=== PATIENT | female | born 1965 | race Caucasian/White ===

== ENCOUNTER 2017-04-04 07:40 | Day surgery (SDC) | payer SELFPAY, BC ==
[~2017-04-04 07:40] MED LIST: ceFAZolin 2 GM in Premix Bag 1 BAG IV ONE
[2017-04-04] MEDS ORDERED: Midazolam 1 MG/ML 2 ML SDV ONE ×3 (07:41→13:37)
[2017-04-04] MEDS ORDERED: Propofol 200 MG/20 ML SDV ONE ×2 (07:41→13:29)
[2017-04-04] MEDS ORDERED: Dexamethasone 4 MG/ML 5 ML MDV ONE ×2 (07:42→14:02)
[2017-04-04] MEDS ORDERED: diphenhydrAMINE 50 MG/ML SDV ONE (07:42)
[2017-04-04] MEDS ORDERED: Bupivacaine 0.25%/EPINEPHrine 1:200,000 10 ML SDV INJECT ONE (08:00)
[2017-04-04] MEDS ORDERED: Ondansetron 4 MG/2 ML SDV IVPUSH PRN (08:00)
[2017-04-04] MEDS ORDERED: Bacitracin Oint 28.35 GM Tube TOP ONE (08:00)
[2017-04-04] MEDS ORDERED: Lactated Ringers 1,000 ML IV SCH (08:00)
[2017-04-04] MEDS ORDERED: Ondansetron 4 MG Tab.DIS PO PRN (08:00)
[2017-04-04] MEDS ORDERED: diphenhydrAMINE 25 MG Cap PO PRN (08:00)
[2017-04-04] MEDS ORDERED: Promethazine 25 MG Tab PO PRN (08:00)
[2017-04-04] MEDS ORDERED: Ondansetron 4 MG/2 ML SDV ONE ×3 (08:33→14:58)
[2017-04-04] MEDS ORDERED: Scopolamine 1.5 MG Transdermal Patch TRDERM PRN (08:39)
--- NOTE | 2017-04-04 08:39 | PCM.PREANE ---
Preanesthetic Assessment - Anesthesia/Transfusion/Family Hx Anesthesia History: Prior Anesthesia Without Reaction Type of Anesthesia Reaction: Excessive Nausea/Vomiting Other Type of Anesthesia Reaction Comment: hx: Motion sickness, sick post, No known family hx: problems Family History of Anesthesia Reaction: No Transfusion History: Prior Transfusion Without Reaction - Review of Systems General: No Symptoms Pulmonary: No Symptoms Cardiovascular: No Symptoms Gastrointestinal: No symptoms Neurological: No Symptoms Other: Reports: None - Physical Assessment O2 Sat by Pulse Oximetry: 100 Respiratory Rate: 16 Vital Signs: Last Vital Signs Temp 36.3 C 04/04/17 08:03 Pulse 54 L 04/04/17 08:03 Resp 16 04/04/17 08:03 BP 127/60 04/04/17 08:03 Pulse Ox 100 04/04/17 08:03 Height: 1.7 m Weight: 91.626 kg ASA Class: 2 Mental Status: Alert & Oriented x3 Airway Class: Mallampati = 2 Dentition: Reports: Normal Dentition Thyro-Mental Finger Breadths: 2 Mouth Opening Finger Breadths: 2 ROM/Head Extension: Full Lungs: Clear to auscultation, Normal respiratory effort Cardiovascular: Regular Rate, Regular Rhythm - Allergies Allergies/Adverse Reactions: Allergies Allergy/AdvReac Type Severity Reaction Status Date / Time codeine Allergy Tachycardia Verified 09/06/15 14:02 - Blood Blood Available: No - Anesthesia Plan Pre-Op Medication Ordered: None - Acknowledgements Anesthesia Type Planned: MAC Pt an Appropriate Candidate for the Planned Anesthesia: Yes Alternatives and Risks of Anesthesia Discussed w Pt/Guardian: Yes Pt/Guardian Understands and Agrees with Anesthesia Plan: Yes PreAnesthesia Questionnaire HEENT History: Reports: None Cardiovascular History: Reports: Other (See Below) (h/o hypertension before loosing 60 lb. on protein diet) Gastrointestinal History: Reports: None Genitourinary History: Reports: None ROUND BONER History: Reports: Musculoskeletal History: Reports: Fracture, Other (See Below) (fatigue fatigue) Other Musculoskeletal History: hx Fracture to a foot Endocrine/Metabolic History: Reports: Obesity/BMI 30+ Other Endocrine/Metabolic History: hx diabetes (not on meds since weight loss) mwas on fen-phen more than 20 years ago, heart check up was ok afterward Hematologic History: Reports: Blood Transfusion(s) Other Hematologic History: hx transfusion after plast surgery - Past Surgical History Head Surgeries/Procedures: Reports: None HEENT Surgical History: Reports: HUMBERTO GI Surgical History: Reports: Appendectomy, Bariatric Procedure, Cholecystectomy , Hernia Repair/Other Other GI Surgeries/Procedures: Inguinal Hernia Repair, abdominoplasty Female Surgical History: Reports: Breast Implant, Hysterectomy Other Female Surgeries/Procedures: hysterectomy with vanessa S&O Neurological Surgical History: Reports: Lumbar Spine Other Neurological Surgeries/Procedures: back surgery x2 Musculoskeletal Surgical History: Reports: Other (See Below) Other Musculoskeletal Surgeries/Procedures:: Low back surgery with hardware ' plate and screws' Dermatological Surgical History: Reports: Plastic Surgical Reconstruction/Repair - SUBSTANCE USE Smoking Status *Q: Never Smoker Recreational Drug Use History: No - HOME MEDS Home Medications: Home Meds Cyanocobalamin (Vitamin B12) [Vitamin B12] 1 injection IM ASDIRECTED 09/06/15 [ History] Estrogens, Conjugated [Premarin] 1 tab PO DAILY 09/06/15 [History] Sodium Fluoride/Potassium Nit [Prevident 5000 Sensitive] 1 dose PO ASDIRECTED PRN 03/30/17 [History] Spironolactone 50 mg PO DAILY 03/30/17 [History] - CURRENT (IN HOUSE) MEDS Current Meds: Current Medications Hydrocodone Bitart/Acetaminophen (Alamo 325-5 Mg) 1 tab PO Q4H PRN PRN Reason: Pain Cephalexin (Keflex) 500 mg PO Q6HR [facility] Diphenhydramine HCl (Benadryl) 25 mg PO Q6H PRN PRN Reason: Itching Lactated Ringer's (Ringers, Lactated) 1,000 mls @ 125 mls/hr IV ASDIRECTED [facility] Last Admin: 04/04/17 08:00 Dose: 125 mls/hr Morphine Sulfate (Morphine) 1 mg IVPUSH Q2H PRN PRN Reason: Pain Ondansetron HCl (Zofran Odt) 4 mg PO Q6H PRN PRN Reason: Nausea/Vomiting Ondansetron HCl (Zofran) 4 mg IVPUSH Q6H PRN PRN Reason: Nausea/Vomiting Promethazine HCl (Phenergan) 25 mg PO Q6H PRN PRN Reason: Nausea/Vomiting Tramadol HCl (Ultram) 50 mg PO Q4H PRN PRN Reason: Pain Discontinued Medications Bacitracin (Bacitracin Oint) 2 gm TOP ONETIME ONE Stop: 06/07/17 08:01 Bupivacaine HCl/Epinephrine Bitart (Marcaine 0.25%/Epinephrine 1:200,000) 40 ml INJECT ONETIME ONE Stop: 04/04/17 08:01 Dexamethasone (Dexamethasone) Confirm Administered Dose 20 mg .ROUTE .STK-MED ONE Stop: 04/04/17 07:43 Diphenhydramine HCl (Benadryl) Confirm Administered Dose 50 mg .ROUTE .STK-MED ONE Stop: 04/04/17 07:43 Cefazolin Sodium/Dextrose 2 gm (/ Premix) 50 mls @ 100 mls/hr IV ONETIME ONE Stop: 04/03/17 15:27 Midazolam HCl (Versed 1 Mg/Ml) Confirm Administered Dose 6 mg .ROUTE .STK-MED ONE Stop: 04/04/17 07:42 Propofol (Diprivan 20 Ml) Confirm Administered Dose 600 mg .ROUTE .STK-MED ONE Stop: 04/04/17 07:42 Sufentanil Citrate (Sufentanil Citrate) Confirm Administered Dose 100 mcg .ROUTE .STK-MED ONE Stop: 04/04/17 07:23
[2017-04-04] MEDS ORDERED: Bupivacaine 0.25%/EPINEPHrine 1:200,000 10 ML SDV ONE ×3 (09:41→12:20)
[2017-04-04] MEDS ORDERED: EPINEPHrine 1:1000 1 MG/ML SDV ONE (09:41)
[2017-04-04] MEDS ORDERED: Lidocaine 1% 50 ML MDV ONE (09:42)
[2017-04-04] MEDS ORDERED: traMADol 50 MG Tab PO PRN (13:00)
[2017-04-04] MEDS ORDERED: Morphine 2 MG/ML Syringe IVPUSH PRN (13:00)
[2017-04-04] MEDS ORDERED: fentaNYL 100 MCG/2 ML SDV IVPUSH PRN (16:25)
--- NOTE | 2017-04-04 16:34 | PCM.OPNOTE ---
- General Post-Op/Procedure Note Date of Surgery/Procedure: 04/04/17 Operative Procedure(s): bilateral facelift with smas and platysmal plication Pre Op Diagnosis: desire for facelift Post-Op Diagnosis: Same Anesthesia Technique: Local, MAC Primary Surgeon: Lesa Quintana Coding Compliance Auditor: Jacy Diaz Complications: None Condition: Good Free Text/Narrative:: Intake & Output 04/04/17 04/04/17 04/04/17 07:59 15:59 23:59 Output Total 405 Balance -405
--- NOTE | 2017-04-04 16:47 | PCM.POSTAN ---
POST ANESTHESIA ASSESSMENT - MENTAL STATUS Mental Status: alert, oriented - VITAL SIGNS Pulse Rate: 76 SaO2: 94 Resp Rate: 12 - RESPIRATORY Respiratory Status: respiratory rate WNL, airway patent, O2 saturation stable - CARDIOVASCULAR CV Status: pulse rate WNL, blood pressure stable - GASTROINTESTINAL GI Status: no symptoms - POST OP HYDRATION Hydration Status: adequate & stable
[2017-04-04] MEDS: Acetaminophen/HYDROcodone 325-5 MG Tab PO PRN (18:05)
[2017-04-04] MEDS: Cephalexin 500 MG Cap PO SCH ×3 (18:07→23:36)
--- NOTE | 2017-04-05 03:40 | PCM48HPAN ---
Post Anesthesia Note - EVALUATION WITHIN 48HRS OF ANESTHETIC Vital Signs in Normal Range: Yes Patient Participated in Evaluation: Yes Respiratory Function Stable: Yes Airway Patent: Yes Cardiovascular Function Stable: Yes Hydration Status Stable: Yes Pain Control Satisfactory: Yes Nausea and Vomiting Control Satisfactory: Yes Mental Status Recovered: Yes
[2017-04-05] MEDS: Acetaminophen/HYDROcodone 325-5 MG Tab PO PRN ×2 (03:53→08:30)
[2017-04-05] MEDS: Cephalexin 500 MG Cap PO SCH ×2 (06:59→11:40)
--- NOTE | 2017-04-05 09:06 | PCM.SN ---
- Free Text/Narrative Note: Rechecked last night at 630pm and this am at 815am. Doing well. No signs of hematoma or bleeding. Feeling well with minimal pain. Will do dressings at 12 when more comfortable and hopefully home after that depending on patients comfort and function today. Some pain right now.
[2017-04-05 10:58] VITALS: BP 115/76
[2017-04-05] MEDS ORDERED: Acetaminophen/HYDROcodone 325-5 MG Tab PO ONE (12:00)
--- NOTE | 2017-04-05 13:12 | PCM.PN ---
- General Info Date of Service: 04/05/17 Admission Dx/Problem (Free Text): s/p facelift pod 1 Subjective Update: doing well and pain controlled with oral medications. Wants to shower. Very happy with process thus far. Functional Status: Reports: pain controlled, tolerating diet, ambulating, urinating - Review of Systems General: Denies: Fever, Weakness HEENT: Reports: no symptoms Pulmonary: Reports: no symptoms Musculoskeletal: Reports: neck pain Skin: Reports: bruising (on right side only - minimal) Neurological: Reports: No Symptoms. Denies: Numbness, Paresthesia, Trouble Speaking, Weakness, Change in Speech Psychiatric: Reports: no symptoms - Patient Data Vitals - most recent: Last Vital Signs Temp 96.5 F 04/05/17 10:55 Pulse 51 L 04/05/17 10:55 Resp 16 04/05/17 10:55 BP 115/76 04/05/17 10:55 Pulse Ox 100 04/05/17 10:55 Weight - most recent: 201 lb 15.095 oz I&O - last 24 hours: Intake & Output 04/04/17 04/05/17 04/05/17 23:59 07:59 15:59 Intake Total 3100 600 Output Total 1 1623 Balance 3099 -1023 Med Orders - Current: Current Medications Hydrocodone Bitart/Acetaminophen (Brea 325-5 Mg) 1 tab PO Q4H PRN PRN Reason: Pain Last Admin: 04/05/17 08:30 Dose: 1 tab Cephalexin (Keflex) 500 mg PO Q6HR [facility] Last Admin: 04/05/17 11:40 Dose: 500 mg Diphenhydramine HCl (Benadryl) 25 mg PO Q6H PRN PRN Reason: Itching Fentanyl (Sublimaze) 50 mcg IVPUSH Q5M PRN PRN Reason: Pain (severe 7-10) Stop: 04/05/17 16:25 Lactated Ringer's (Ringers, Lactated) 1,000 mls @ 125 mls/hr IV ASDIRECTED [facility] Last Admin: 04/04/17 08:00 Dose: 125 mls/hr Morphine Sulfate (Morphine) 1 mg IVPUSH Q2H PRN PRN Reason: Pain Last Admin: 04/04/17 22:02 Dose: 1 mg Ondansetron HCl (Zofran Odt) 4 mg PO Q6H PRN PRN Reason: Nausea/Vomiting Ondansetron HCl (Zofran) 4 mg IVPUSH Q6H PRN PRN Reason: Nausea/Vomiting Promethazine HCl (Phenergan) 25 mg PO Q6H PRN PRN Reason: Nausea/Vomiting Scopolamine (Transderm-Scop) 1.5 mg TRDERM Q72H PRN PRN Reason: Nausea Last Admin: 04/04/17 08:57 Dose: 1.5 mg Tramadol HCl (Ultram) 50 mg PO Q4H PRN PRN Reason: Pain Discontinued Medications Hydrocodone Bitart/Acetaminophen (Brea 325-5 Mg) 1 tab PO ONETIME ONE Stop: 04/05/17 12:01 Last Admin: 04/05/17 12:01 Dose: 1 tab Bacitracin (Bacitracin Oint) 2 gm TOP ONETIME ONE Stop: 04/04/17 08:01 Last Admin: 04/04/17 17:55 Dose: Not Given Bupivacaine HCl/Epinephrine Bitart (Marcaine 0.25%/Epinephrine 1:200,000) 40 ml INJECT ONETIME ONE Stop: 04/04/17 08:01 Last Admin: 04/04/17 17:55 Dose: Not Given Bupivacaine HCl/Epinephrine Bitart (Marcaine 0.25%/Epinephrine 1:200,000) Confirm Administered Dose 40 ml .ROUTE .STK-MED ONE Stop: 04/04/17 09:42 Bupivacaine HCl/Epinephrine Bitart (Marcaine 0.25%/Epinephrine 1:200,000) Confirm Administered Dose 20 ml .ROUTE .STK-MED ONE Stop: 04/04/17 11:45 Bupivacaine HCl/Epinephrine Bitart (Marcaine 0.25%/Epinephrine 1:200,000) Confirm Administered Dose 30 ml .ROUTE .STK-MED ONE Stop: 04/04/17 12:21 Dexamethasone (Dexamethasone) Confirm Administered Dose 20 mg .ROUTE .STK-MED ONE Stop: 04/04/17 07:43 Dexamethasone (Dexamethasone) Confirm Administered Dose 20 mg .ROUTE .STK-MED ONE Stop: 04/04/17 14:03 Diphenhydramine HCl (Benadryl) Confirm Administered Dose 50 mg .ROUTE .STK-MED ONE Stop: 04/04/17 07:43 Epinephrine HCl (Adrenalin 1:1000) Confirm Administered Dose 1 mg .ROUTE .STK- MED ONE Stop: 04/04/17 09:42 Cefazolin Sodium/Dextrose 2 gm (/ Premix) 50 mls @ 100 mls/hr IV ONETIME ONE Stop: 04/03/17 15:27 Last Admin: 04/04/17 17:55 Dose: Not Given Lidocaine HCl (Xylocaine 1%) Confirm Administered Dose 50 ml .ROUTE .STK-MED ONE Stop: 04/04/17 09:43 Midazolam HCl (Versed 1 Mg/Ml) Confirm Administered Dose 6 mg .ROUTE .STK-MED ONE Stop: 04/04/17 07:42 Midazolam HCl (Versed 1 Mg/Ml) Confirm Administered Dose 2 mg .ROUTE .STK-MED ONE Stop: 04/04/17 11:44 Midazolam HCl (Versed 1 Mg/Ml) Confirm Administered Dose 2 mg .ROUTE .STK-MED ONE Stop: 04/04/17 13:38 Ondansetron HCl (Zofran) Confirm Administered Dose 4 mg .ROUTE .STK-MED ONE Stop: 04/04/17 08:34 Ondansetron HCl (Zofran) Confirm Administered Dose 4 mg .ROUTE .STK-MED ONE Stop: 04/04/17 10:18 Ondansetron HCl (Zofran) Confirm Administered Dose 4 mg .ROUTE .STK-MED ONE Stop: 04/04/17 14:59 Propofol (Diprivan 20 Ml) Confirm Administered Dose 600 mg .ROUTE .STK-MED ONE Stop: 04/04/17 07:42 Propofol (Diprivan 20 Ml) Confirm Administered Dose 600 mg .ROUTE .STK-MED ONE Stop: 04/04/17 13:30 Sufentanil Citrate (Sufentanil Citrate) Confirm Administered Dose 100 mcg .ROUTE .STK-MED ONE Stop: 04/04/17 07:23 - Exam Quality Assessment: No: DVT prophylaxis (ambulatory and MAC anesthesia - not general. ) General: alert, oriented, cooperative HEENT: Pupils equal, EOMI Neck: supple (minimal swelling here with excellent contour and redraping. Bruising on the right side only. All other areas looking quite well. ) Lungs: Normal respiratory effort Extremities: no edema, no tenderness/swelling Skin: warm, dry Wound/Incisions: dressing dry and intact, drainage (minimal serous with red tinge. ), other (brusiing of the right neck area at inferior aspect. No other signs of swelling or compromise. Incisions with excellent healing and skin flap viablity. ). No: erythema Psy/Mental Status: alert, normal affect, normal mood - Problem List & Annotations (1) Encounter for cosmetic surgery SNOMED Code(s): 782592420, 826811817 Code(s): Z41.1 - ENCOUNTER FOR COSMETIC SURGERY Status: Acute Priority: Medium Current Visit: Yes - Problem List Review Problem List Initiated/Reviewed/Updated: Yes - My Orders Last 24 Hours: My Active Orders 04/04/17 13:00 Patient Status [ADT] Routine Morphine 1 mg IVPUSH Q2H PRN traMADol [Ultram] 50 mg PO Q4H PRN 04/04/17 14:00 Ambulate [RC] ASDIRECTED Occlusive Dressing [Wound Care] [RC] DAILY 04/04/17 15:04 Drain Management [RC] ASDIRECTED Head of Bed Elevation [RC] ASDIRECTED 04/04/17 16:00 Cephalexin [Keflex] 500 mg PO Q6HR 04/04/17 16:34 Communication Order [RC] ROUTINE 04/04/17 Dinner General [Regular Diet] [DIET] - Plan Plan:: Doing quite well. Drains removed today and can shower per usual. Recheck Sunday, sooner with any issues or concerns. Private contact information provided. Lotus for pain. OK to use OTC medications if needed as well. Ambulate at least tid and no driving with narcotics.
--- NOTE | 2017-04-05 16:45 | OR ---
SURGEON: ELAINA ROBB MD DATE OF PROCEDURE: 04/04/2017 PREOPERATIVE DIAGNOSIS: Desire for face lift. POSTOPERATIVE DIAGNOSIS: Desire for face lift. PROCEDURE: Bilateral subcutaneous face lift with SMAS and platysmal plication. MANAGER CLUB: Jacy Diaz. ANESTHESIA: Local MAC. INDICATIONS: Ms. Pate is a 51-year-old female seen today in evaluation for bilateral face lift. Risks and benefits of the procedure were thoroughly discussed with her and informed consent was obtained. Risks were including, but not limited to, bleeding, infection, damage to underlying or overlying structures, possible need for future interventions and possible scarring. We specifically discussed nerve damage in these areas and the high risk of this on the sites of the procedure. In addition, we discussed the possible need for revision or reoperation should any complications occur. She understands all of these and a copy of our informed consent was provided for her. She was in agreement and today proceeded with surgery. PROCEDURE IN DETAIL: After informed consent was obtained and placed on the chart, the patient was brought to the operating theater and laid in the supine position. After adequate local MAC anesthesia was obtained, with an initial pause due to lack of respirations and needing of a facemask to support her breathing, the area was prepped and draped in a normal fashion and a time-out was completed to confirm side and site. A Betadine prep was used with butterfly needles and Steri-Strips into the intranasal area. In addition, once adequately Steri-Stripped in place, attention was then paid to placement of the CO2 return and this was Steri-Stripped at the top of this to ensure appropriate monitoring. Attention was then paid to marking of the bilateral face lift incisions in the preauricular area extending around the ear into the postauricular area and into the hairline. There was a standard facelift incision extending to just above the lateral eye area. Once this was marked, 0.25% Marcaine with epinephrine was infiltrated into the area to ensure hemostasis and anesthesia. Once this was completed, tumescent solution of 50 mL of lidocaine mixed with 1000 mL of saline and one ampule of epinephrine was mixed and injected into the area using the liposuction tumescent infiltration cannula. Once adequate hemostasis was appreciated by color change of the skin, attention was then paid to dissection of the bilateral skin flaps. The preauricular incision was made and dissection was carried down into the subcutaneous plane taking care to maintain SMAS layer underneath in good condition. This was elevated to the medial pupillary line bilaterally and just pass the jowling on the lower aspect position of the chin. Care was taken to maintain and protect the marginal mandibular nerve bilaterally. Attention was then carried underneath the ear and the neck area in order to free up the subcutaneous plane on the anterior neck. Platysma was maintained intact just underneath this. Once the subcutaneous plane had been developed, attention was then paid to the deeper work. Attention was then paid 1st to the platysma and the inferior border of the lateral platysma was transected using Bovie electrocautery. Once this was completed, attention was then paid to lateral platysma window, 1 cm inferior and 1 cm anterior to the inferior tragus. The platysma was then grabbed and plicated to the mastoid process. Several [id number] 3-0 PDS sutures were used to accomplish this to redrape the neck skin. Once this was accomplished, attention was paid to the preauricular area and inverted L shaped smash plication was developed. Once this was completed, an appropriate tension was appreciated. [id number] 3-0 PDS sutures were used to secure this to the zygomatic arch area. Once this was completed, and meticulous hemostasis was obtained, attention was then paid to copious irrigation and then liposuction of the submental area deep to the platysma. Once this was completed, approximately 15 mL of liposuction material and tumescent had been removed. Attention was then paid to redraping of the skin flap and plication sutures in the inferior jaw line area using 4-0 Monocryl to accomplish this and advance the flap. Once the skin flap was advanced and plicated in the submental area extending laterally to the inferior auricular along the jaw line, attention was then paid to redraping of the skin flap itself. This was done with minimal tension and appropriate contour and a superolateral pole position was completed. Once redraped in a natural fashion, this was stapled in place and trimmed appropriately. Once adequately trimmed, the wounds were then closed. After placement of two 23-gauge butterfly drains stuck into red rubber tube. The skin was closed using 4-0 Monocryl stitches, running 6-0 in the preauricular area, and running 5-0 in the postauricular area. The wounds were then dressed with Steri-Strips, fluffs, and a jaw bra. The patient tolerated this well and all counts of needles were correct at the end of the case. FOLLOWUP INSTRUCTIONS: The patient will be maintained in the hospital for continued evaluation. They will call with any issues or concerns and were given a prescription for pain control. HEESTELLA / KARY /[id number] MTDD
== END 2017-04-09 15:30 | disposition home or self-care (01) ==
LOC: MW.SDS 07:40 → MW.MS 13:00 → UNDOADMOB 13:00 → UNDODISOB 04-05 14:00 → MW.SDS 04-09 15:30
PROVIDERS: ATTEND Plastic Surgery
DX: Z41.1 Encounter for cosmetic surgery (principal); I10 Essential (primary) hypertension; E53.8 Deficiency of other specified B group vitamins; Z92.29 Personal history of other drug therapy; E66.9 Obesity, unspecified; Z79.890 Hormone replacement therapy; Z88.6 Allergy status to analgesic agent; Z79.899 Other long term (current) drug therapy; Z98.84 Bariatric surgery status; Z90.49 Acquired absence of other specified parts of digestive tract; Z90.710 Acquired absence of both cervix and uterus; Z98.890 Other specified postprocedural states
CPT/HCPCS: 15825; 15829; A9270; J0171; J0690; J1100; J1200; J2250; J2270; J2405; J7120; 00300; J2704

== ENCOUNTER 2018-01-09 10:15 | Day surgery (SDC) | payer OTHER, SELFPAY ==
[~2018-01-09 10:15] MED LIST changes: +Bupivacaine 0.25%/EPINEPHrine 1:200,000 10 ML SDV INJECT ONE; +Bupivacaine 25%/EPINEPHrine/PF 30 ML ONE; +EPINEPHrine 1 MG/ML SDV ONE; +Gentamicin 40 MG/ML 2 ML Vial ONE; +ceFAZolin 1 GM Vial ONE; +traMADol 50 MG Tab PO PRN
--- NOTE | 2018-01-09 10:40 | PCM.PREANE ---
Preanesthetic Assessment - Anesthesia/Transfusion/Family Hx Anesthesia History: Prior Anesthesia Reaction Type of Anesthesia Reaction: Excessive Nausea/Vomiting Other Type of Anesthesia Reaction Comment: hx: Motion sickness, sick post, No known family hx: problems Family History of Anesthesia Reaction: No Transfusion History: Prior Transfusion Without Reaction - Review of Systems General: No Symptoms Pulmonary: No Symptoms Cardiovascular: No Symptoms Gastrointestinal: No Symptoms Neurological: No Symptoms Other: Reports: None - Physical Assessment NPO Status Date: 01/08/18 Height: 1.7 m Weight: 97.069 kg ASA Class: 2 Mental Status: Alert & Oriented x3 Airway Class: Mallampati = 1 Dentition: Reports: Normal Dentition ROM/Head Extension: Full Lungs: Clear to Auscultation, Normal Respiratory Effort Cardiovascular: Regular Rate, Regular Rhythm - Allergies Allergies/Adverse Reactions: Allergies Allergy/AdvReac Type Severity Reaction Status Date / Time codeine Allergy Tachycardia Verified 01/04/18 10:20 metformin Allergy Diarrhea Verified 01/04/18 10:21 - Anesthesia Plan Pre-Op Medication Ordered: None - Acknowledgements Anesthesia Type Planned: General Anesthesia Pt an Appropriate Candidate for the Planned Anesthesia: Yes Alternatives and Risks of Anesthesia Discussed w Pt/Guardian: Yes Pt/Guardian Understands and Agrees with Anesthesia Plan: Yes Additional Comments: has frequent PACs and PVCs, benign PreAnesthesia Questionnaire HEENT History: Reports: None Cardiovascular History: Reports: Arrhythmia, Hypertension Other Cardiovascular History: possible PVC's Gastrointestinal History: Reports: None Genitourinary History: Reports: None CREATIVE SERVICES DESIGNER History: Reports: Musculoskeletal History: Reports: Fracture Other Musculoskeletal History: hx of fx foot Neurological History: Reports: Other (See Below) Other Neuro History: hx of motion sickness Endocrine/Metabolic History: Reports: Obesity/BMI 30+ Other Endocrine/Metabolic History: hx diabetes (not on meds since weight loss) mwas on fen-phen more than 20 years ago, heart check up was ok afterward Hematologic History: Reports: B12 Deficiency, Other (See Below) Other Hematologic History: potassium deficiency Dermatologic History: Reports: Other (See Below) Other Dermatologic History: hyperpigmentation - Past Surgical History Head Surgeries/Procedures: Reports: None HEENT Surgical History: Reports: LASIK GI Surgical History: Reports: Appendectomy, Bariatric Procedure, Cholecystectomy , Hernia, Inguinal Female Surgical History: Reports: Breast Implant, Hysterectomy, Oophorectomy Neurological Surgical History: Reports: Lumbar Spine, Spinal Fusion - SUBSTANCE USE Smoking Status *Q: Never Smoker Recreational Drug Use History: No - HOME MEDS Home Medications: Home Meds Cyanocobalamin (Vitamin B12) [Vitamin B12] 1 injection IM ASDIRECTED 09/06/15 [ History] Sodium Fluoride/Potassium Nit [Prevident 5000 Sensitive] 1 dose PO ASDIRECTED PRN 03/30/17 [History] Spironolactone 50 mg PO DAILY 03/30/17 [History] Estrogens, Conjugated [Premarin] 0.625 mg PO DAILY 01/04/18 [History] Hydroquinone Microspheres [Hydroquinone] 1 applic TOP ASDIRECTED 01/04/18 [ History] - CURRENT (IN HOUSE) MEDS Current Meds: Current Medications Lactated Ringer's (Ringers, Lactated) 1,000 mls @ 125 mls/hr IV ASDIRECTED [facility] Tramadol HCl (Ultram) 50 mg PO Q4H PRN PRN Reason: Pain Discontinued Medications Bacitracin (Bacitracin) Confirm Administered Dose 50,000 units .ROUTE .STK-MED ONE Stop: 01/09/18 07:35 Bupivacaine HCl/Epinephrine Bitart (Marcaine 0.25%/Epinephrine 1:200,000) 10 ml INJECT ONETIME ONE Stop: 01/09/18 08:01 Cefazolin Sodium (Ancef) Confirm Administered Dose 1 gm .ROUTE .STK-MED ONE Stop: 01/09/18 07:35 Epinephrine HCl (Adrenalin) Confirm Administered Dose 1 mg .ROUTE .STK-MED ONE Stop: 01/09/18 07:41 Gentamicin Sulfate (Gentamicin) Confirm Administered Dose 80 mg .ROUTE .STK-MED ONE Stop: 01/09/18 07:34 Cefazolin Sodium/Dextrose 2 gm (/ Premix) 50 mls @ 100 mls/hr IV ONETIME ONE Stop: 01/09/18 08:29 Bupivacaine HCl/Epinephrine Bitart (Sensorc Mpf 0.25%-Epi [id number]) Confirm Administered Dose 60 mls @ as directed .ROUTE .STK-MED ONE Stop: 01/09/18 07:34
[2018-01-09] MEDS: Lactated Ringers 1,000 ML IV SCH ×2 (10:59→19:06)
[2018-01-09] MEDS ORDERED: Propofol 200 MG/20 ML SDV ONE ×3 (11:37→15:05)
[2018-01-09] MEDS ORDERED: Lidocaine 2% 5 ML SDV ONE (11:37)
[2018-01-09] MEDS ORDERED: Midazolam 1 MG/ML 2 ML SDV ONE (11:37)
[2018-01-09] MEDS ORDERED: fentaNYL 250 MCG/5 ML SDV ONE (11:38)
[2018-01-09] MEDS ORDERED: Ondansetron 4 MG/2 ML SDV ONE (11:38)
[2018-01-09] MEDS ORDERED: Scopolamine 1.5 MG Transdermal Patch ONE (13:30)
[2018-01-09] MEDS ORDERED: Succinylcholine 200 MG/10 ML MDV ONE (14:02)
[2018-01-09] MEDS ORDERED: fentaNYL 100 MCG/2 ML SDV ONE ×2 (15:03→16:25)
[2018-01-09] MEDS ORDERED: Glycopyrrolate 0.2 MG/ML SDV ONE (15:34)
[2018-01-09] MEDS ORDERED: Ondansetron 4 MG/2 ML SDV IVPUSH PRN (17:07)
[2018-01-09] MEDS ORDERED: Ondansetron 4 MG Tab.DIS PO PRN (17:07)
[2018-01-09] MEDS ORDERED: Promethazine 25 MG Tab PO PRN (17:11)
[2018-01-09] MEDS ORDERED: HYDROmorphone 1 MG/ML Syringe IVPUSH PRN (17:11)
--- NOTE | 2018-01-09 17:13 | PCM.OPNOTE ---
- General Post-Op/Procedure Note Date of Surgery/Procedure: 01/09/18 Operative Procedure(s): bilateral breast lift and implant exchange Pre Op Diagnosis: cosmetic Post-Op Diagnosis: Same Anesthesia Technique: General ET Tube, Local Primary Surgeon: Lesa Quintana Fabric Separator Operator: Jacy Diaz Complications: None Condition: Good
[2018-01-09] MEDS: fentaNYL 100 MCG/2 ML SDV IVPUSH PRN ×2 (17:20→17:32)
--- NOTE | 2018-01-09 17:38 | PCM.POSTAN ---
POST ANESTHESIA ASSESSMENT - MENTAL STATUS Mental Status: Alert, Oriented - VITAL SIGNS Pulse Rate: 78 SaO2: 98 Resp Rate: 10 Blood Pressure: 127/74 - RESPIRATORY Respiratory Status: Respiratory Rate WNL, Airway Patent, O2 Saturation Stable - CARDIOVASCULAR CV Status: Pulse Rate WNL, Blood Pressure Stable - GASTROINTESTINAL GI Status: No Symptoms - POST OP HYDRATION Hydration Status: Adequate & Stable - OBSERVATIONS Free Text/Narrative:: Pt opens eyes to voice, VSS.
[2018-01-09] MEDS ORDERED: Ketorolac 30 MG/ML SDV IVPUSH ONE (17:49)
[2018-01-09] MEDS ORDERED: Acetaminophen 1,000 MG in Premix Bag 1 BAG IV ONE (17:50)
[2018-01-09] MEDS: Acetaminophen/HYDROcodone 325-5 MG Tab PO PRN (20:23)
[2018-01-10] MEDS: Acetaminophen/HYDROcodone 325-5 MG Tab PO PRN ×2 (03:12→07:31)
[2018-01-10] MEDS: Lactated Ringers 1,000 ML IV SCH (03:12)
[2018-01-10 10:45] VITALS: BP 127/74
--- NOTE | 2018-01-10 10:45 | PCM48HPAN ---
Post Anesthesia Note - EVALUATION WITHIN 48HRS OF ANESTHETIC Vital Signs in Normal Range: Yes Patient Participated in Evaluation: Yes Respiratory Function Stable: Yes Airway Patent: Yes Cardiovascular Function Stable: Yes Hydration Status Stable: Yes Pain Control Satisfactory: Yes Nausea and Vomiting Control Satisfactory: Yes Mental Status Recovered: Yes Pulse Rate: 78 Resp Rate: 18 Blood Pressure: 127/74
--- NOTE | 2018-01-11 10:49 | OR ---
SURGEON: ELAINA ROBB MD DATE OF PROCEDURE: 01/09/2018 PREOPERATIVE DIAGNOSIS: Desire for improved breast contour and size. POSTOPERATIVE DIAGNOSIS: Desire for improved breast contour and size. PROCEDURE: Bilateral breast implant exchange and bilateral breast mastopexy. ANALYST: ZURI Shirley. REASON ANALYST WAS NECESSARY: Prepping, draping, and closure assistance. INDICATIONS: Ms. Pate is a 52-year-old female, seen today in evaluation for bilateral breast surgery. She has had previous implants and would like them smaller. In addition, she would like a breast lift. Risks and benefits of this were discussed with her, and she was in agreement to proceed. Risks were including, but not limited to, bleeding, infection, damage to underlying or overlying structures, possible need for future interventions, and possible scarring. PROCEDURE IN DETAIL: After informed consent was obtained and placed on the chart, the patient was brought to the operating theater and laid in supine position. After adequate general anesthesia was obtained, the area was prepped and draped, and a time-out was completed to confirm side and site. Attention was then paid to the previous lower inframammary fold incisions, and the dissection was carried here until exposure of the implant. The previous implants were removed, and once adequately removed, meticulous hemostasis was obtained, and the pocket was explored. The pocket was quite lateral and thus adjusting capsular stitches were placed to allow the implant pocket to be placed more medially. It was determined that the patient would need implant for an appropriate contour of the upper pole, which was a concern to her. Given this, we elected on replacement of new implants. The new implants were chosen to be 200 mL less than the previous implants. On the right, reference #[id number], serial #[id number], style 15 Natrelle silicone- filled breast implant, 213 mL was placed on the right, and on the left, reference #15-213, serial #[id number], again style 15, 213 mL, implant was placed. Prior to placement, the capsular stitches were completed bilaterally using 2-0 PDS sutures, and the pockets were copiously irrigated with triple antibiotic solution. The implants were prepared with triple antibiotic solution and then placed with a Ruth funnel. Once in the pocket, attention was then paid to closure of the deep fascial layer using a 3-0 Monocryl stitch. Once this was completed, attention was then paid to the estimated markings of the mastopexy. The patient is a massive weight loss patient and thus an autoaugmentation type of technique was employed using the lateral breast tissue. Once the markings were complete, the patient was tacked into appropriate position and sat up to appreciate symmetry. Minor adjustments had to be made. Once this was completed, attention was then paid to dissection. The superomedial pedicle was dissected on the breast tissue itself, and dissection was carried laterally, undermining, taking care to stay in the breast tissue above the level of the underlying implant. Dissection was carried laterally into the axillary area, and this tissue was then advanced appropriately. Again, the patient's nipple was slightly rotated to a new superior position, and the outer breast tissue was brought medially to allow autoaugmentation. Once stapled in place, the patient was sat up and excess tissue was trimmed. Minor adjustments were again made, and the patient was laid back in the supine position. The wounds were then closed using deep 3-0 Monocryl Stratafix suture and a running 4-0 Stratafix suture for the skin. The wounds were dressed with Steri-Strips, fluffs, tape, and a compression bra. The patient tolerated this well, and all counts and needles were correct at the end of the case. FOLLOWUP INSTRUCTIONS: She will be maintained in the hospital overnight for pain control. They will call with any questions. MOOK / KARY /[id number]
== END 2018-01-10 09:50 | disposition home or self-care (01) ==
LOC: MW.SDS 10:15 → MW.MS 16:18 → MW.SDS 01-10 09:50
PROVIDERS: ATTEND Plastic Surgery
DX: Z41.1 Encounter for cosmetic surgery (principal); I10 Essential (primary) hypertension; E11.9 Type 2 diabetes mellitus without complications; E53.8 Deficiency of other specified B group vitamins; E87.1 Hypo-osmolality and hyponatremia; L81.9 Disorder of pigmentation, unspecified; R00.2 Palpitations; E66.9 Obesity, unspecified; Z68.33 Body mass index [BMI] 33.0-33.9, adult; Z79.890 Hormone replacement therapy; Z79.899 Other long term (current) drug therapy; Z88.5 Allergy status to narcotic agent; Z88.8 Allergy status to other drugs, medicaments and biological substances; Z98.82 Breast implant status; Z98.84 Bariatric surgery status; Z98.890 Other specified postprocedural states
CPT/HCPCS: 19380; A9270; C1789; J0330; J0690; J1170; J1580; J1885; J2250; J2405; J3010; J7120; 00402; J0171; J2704

== ENCOUNTER 2018-07-31 15:10 | Emergency (ER) | payer BC ==
[2018-07-31 15:21] VITALS: BP 155/85
--- NOTE | 2018-07-31 15:27 | EDM.PDOC ---
ED HPI GENERAL MEDICAL PROBLEM - General Chief Complaint: Back Pain or Injury Stated Complaint: BACK PAIN Time Seen by Provider: 07/31/18 15:14 Source of Information: Reports: Patient History Limitations: Reports: No Limitations - History of Present Illness INITIAL COMMENTS - FREE TEXT/NARRATIVE: HISTORY AND PHYSICAL: History of present illness: Patient is a 53-year-old female who presents to the emergency room requesting pain management. She states she has surgery scheduled for a lumbar fusion on 09/2018 in [place]. She has been using oxycodone four times daily to help manage her pain. She states today the pain is unbearable to be admitted to our hospital for pain management. Denies any new injury, trauma or falls. She denies any urinary or fecal incontinence. She is ambulatory into the emergency room any numbness or tingling to her distal extremities. Review of systems: As per history of present illness and below otherwise all systems reviewed and negative. Past medical history: As per history of present illness and as reviewed below otherwise noncontributory. Surgical history: As per history of present illness and as reviewed below otherwise noncontributory. Social history: No reported history of drug or alcohol abuse. Family history: As per history of present illness and as reviewed below otherwise noncontributory. Physical exam: General: Well-developed and well-nourished 53-year-old female. Alert and oriented. Nontoxic appearing and in no acute distress. HEENT: Atraumatic, normocephalic, pupils equal and reactive bilaterally, negative for conjunctival pallor or scleral icterus, mucous membranes moist, throat clear, neck supple, nontender, trachea midline. No drooling or trismus noted. No meningeal signs Lungs: Clear to auscultation, breath sounds equal bilaterally, chest nontender. Heart: S1S2, regular rate and rhythm without overt murmur Abdomen: Soft, nondistended, nontender. Negative for masses or hepatosplenomegaly. Negative for costovertebral tenderness. Pelvis: Stable nontender. Genitourinary: Deferred. Rectal: Deferred. Skin: Intact, warm, dry. No lesions or rashes noted. Extremities: Atraumatic, negative for cords or calf pain. Neurovascular unremarkable. Neuro: Awake, alert, oriented. Cranial nerves II through XII unremarkable. Cerebellum unremarkable. Motor and sensory unremarkable throughout. Exam nonfocal. Notes: Patient had a lumbar spine MRI on 06/20/18: Results show some degenerative changes, posterior disc bulging at L2-3. Possible impingement of the exiting left L2 nerve root. Patient had Oxycodone prescription filled on 07/15/2018 (#60 tabs) and 07/26/18 (#60 tabs) for pain management. Patient states she has the expectation of being admitted to the hospital for pain management until she has surgery. She is sitting comfortably on the chair, and does not appear to be in any acute distress. She is neurologically intact. Will give her Norflex and Dilaudid x1 dose while here. We discussed appropriate follow up with Dr Moody for further pain management. Dr Jacinto, Neurosurgeon at [facility], was consulted on this patient. He recommended to add a muscle relaxer and medrol dospak. This information was shared with the patient. We discussed follow-up with her primary care provider and called the neurosurgeon tomorrow. Diagnostics: None Therapeutics: Dilaudid, Norflex Prescription: Xanax (#10) Medrol Dosepak Impression: Chronic Back Pain Plan: 1. We did talk with your surgeon about your breakthrough pain. Together, we felt that you would benefit from a steriod and muscle relaxor. Continue taking your home medications as directed. Take your prescription as directed. 2. Follow up with Dr Moody as needed for further medication management. 3. Return to the ED as need and as discussed. Definitive disposition and diagnosis as appropriate pending reevaluation and review of above. Lower Back Pain Score (Numeric/FACES): 10 - Related Data Allergies Allergy/AdvReac Type Severity Reaction Status Date / Time codeine Allergy Tachycardia Verified 07/31/18 15:24 metformin Allergy Diarrhea Verified 07/31/18 15:24 Home Meds: Home Meds Cyanocobalamin (Vitamin B12) [Vitamin B12] 1 injection IM ASDIRECTED 09/06/15 [ History] Sodium Fluoride/Potassium Nit [Prevident 5000 Sensitive] 1 dose PO ASDIRECTED PRN 03/30/17 [History] Spironolactone 50 mg PO DAILY 03/30/17 [History] Estrogens, Conjugated [Premarin] 0.625 mg PO DAILY 01/04/18 [History] Hydroquinone Microspheres [Hydroquinone] 1 applic TOP ASDIRECTED 01/04/18 [ History] Ondansetron HCl [Zofran] 4 mg PO Q6HR PRN #30 tablet 01/09/18 [Rx] ALPRAZolam [Xanax] 0.5 mg PO QPM PRN 10 Days #10 tablet 07/31/18 [Rx] methylPREDNISolone [Medrol] 4 mg PO DAILY #1 dospk 07/31/18 [Rx] oxyCODONE HCl/Acetaminophen [Endocet 5-325 Tablet] 1 PO QID 07/31/18 [History] Past Medical History HEENT History: Reports: None Cardiovascular History: Reports: Arrhythmia, Hypertension Other Cardiovascular History: possible PVC's Gastrointestinal History: Reports: None Genitourinary History: Reports: None [employer] History: Reports: Musculoskeletal History: Reports: Fracture Other Musculoskeletal History: hx of fx foot Neurological History: Reports: Other (See Below) Other Neuro History: hx of motion sickness Endocrine/Metabolic History: Reports: Obesity/BMI 30+ Other Endocrine/Metabolic History: hx diabetes (not on meds since weight loss) mwas on fen-phen more than 20 years ago, heart check up was ok afterward Hematologic History: Reports: B12 Deficiency, Other (See Below) Other Hematologic History: potassium deficiency Dermatologic History: Reports: Other (See Below) Other Dermatologic History: hyperpigmentation - Past Surgical History Head Surgeries/Procedures: Reports: None HEENT Surgical History: Reports: JULIANNAIK GI Surgical History: Reports: Appendectomy, Bariatric Procedure, Cholecystectomy , Hernia, Inguinal Other GI Surgeries/Procedures: Inguinal Hernia Repair, abdominoplasty Female Surgical History: Reports: Breast Implant, Hysterectomy, Oophorectomy Other Female Surgeries/Procedures: hysterectomy with vanessa S&O Neurological Surgical History: Reports: Lumbar Spine, Spinal Fusion Other Neurological Surgeries/Procedures: back surgery x2 Musculoskeletal Surgical History: Reports: Other (See Below) Other Musculoskeletal Surgeries/Procedures:: Low back surgery with hardware ' plate and screws' Dermatological Surgical History: Reports: Plastic Surgical Reconstruction/Repair ED ROS GENERAL - Review of Systems Review Of Systems: ROS reveals no pertinent complaints other than HPI. ED EXAM,LOWER BACK PAIN/INJURY - Physical Exam Exam: See Below (See dictation) Course - Vital Signs Last Recorded V/S: Last Vital Signs Temp 97.2 F 07/31/18 15:20 Pulse 65 07/31/18 15:20 Resp 20 07/31/18 15:20 BP 155/85 H 07/31/18 15:20 Pulse Ox 100 07/31/18 15:20 - Orders/Labs/Meds Orders: Active Orders 24 hr Category Date Time Status Orphenadrine [Norflex] Med 07/31/18 15:45 Active 60 mg IM Q12H Medication Orders Orphenadrine Citrate (Norflex) 60 mg IM Q12H SHASTA Last Admin: 07/31/18 15:58 Dose: 60 mg Meds: Medications Generic Name Dose Route Start Last Admin Trade Name Freq PRN Reason Stop Dose Admin Orphenadrine Citrate 60 mg 07/31/18 15:45 07/31/18 15:58 Norflex IM 60 mg Q12H SHASTA Administration Discontinued Medications Generic Name Dose Route Start Last Admin Trade Name Freq PRN Reason Stop Dose Admin Hydromorphone HCl 2 mg 07/31/18 15:44 07/31/18 15:59 Dilaudid IM 07/31/18 15:45 2 mg ONETIME ONE Administration Departure - Departure Time of Disposition: 16:09 Disposition: Home, Self-Care 01 Clinical Impression: Chronic back pain Qualifiers: Back pain location: low back pain Back pain laterality: right Sciatica presence : with sciatica Sciatica laterality: sciatica of right side Qualified Code(s): M54.41 - Lumbago with sciatica, right side - Discharge Information Prescriptions: ALPRAZolam [Xanax] 0.5 mg PO QPM PRN 10 Days #10 tablet PRN Reason: Pain methylPREDNISolone [Medrol] 4 mg PO DAILY #1 dospk Instructions: Back Pain, Adult Referrals: Cristian Moody MD [Primary Care Provider] - Forms: ED Department Discharge Additional Instructions: The following information is given to patients seen in the emergency department who are being discharged to home. This information is to outline your options for follow-up care. We provide all patients seen in our emergency department with a follow-up referral. The need for follow-up, as well as the timing and circumstances, are variable depending upon the specifics of your emergency department visit. If you don't have a primary care physician on staff, we will provide you with a referral. We always advise you to contact your personal physician following an emergency department visit to inform them of the circumstance of the visit and for follow-up with them and/or the need for any referrals to a consulting specialist. The emergency department will also refer you to a specialist when appropriate. This referral assures that you have the opportunity for follow-up care with a specialist. All of these measure are taken in an effort to provide you with optimal care, which includes your follow-up. Under all circumstances we always encourage you to contact your private physician who remains a resource for coordinating your care. When calling for follow-up care, please make the office aware that this follow-up is from your recent emergency room visit. If for any reason you are refused follow-up, please contact the [facility] Emergency Department at and asked to speak to the emergency department charge nurse. [facility] [address] [place] [id number] 1. We did talk with your surgeon about your breakthrough pain. Together, we felt that you would benefit from a steroid (Medrol Dosepak) and muscle relaxer at night (Xanax). Continue taking your home medications as directed. Take your new prescription as directed. 2. Follow up with Dr Moody as needed for further medication management. 3. Return to the ED as need and as discussed. - My Orders Last 24 Hours: My Active Orders 07/31/18 15:45 Orphenadrine [Norflex] 60 mg IM Q12H - Assessment/Plan Last 24 Hours: My Active Orders 07/31/18 15:45 Orphenadrine [Norflex] 60 mg IM Q12H
[2018-07-31] MEDS ORDERED: HYDROmorphone 2 MG/ML SDV IM ONE (15:44)
== END 2018-07-31 16:31 | disposition home or self-care (01) ==
LOC: MW.ED 15:10
DX: M54.41 Lumbago with sciatica, right side (principal); I10 Essential (primary) hypertension; Z88.5 Allergy status to narcotic agent; Z88.8 Allergy status to other drugs, medicaments and biological substances; Z79.899 Other long term (current) drug therapy
CPT/HCPCS: 96372; 99283; J1170; J2360

== ENCOUNTER 2019-05-08 12:00 | Day surgery (SDC) | payer BC ==
[~2019-05-08 12:00] MED LIST changes: +Betamethasone Acetate/Betamethasone Sod Phosphate 30 MG/5 ML MDV ONE; -Bupivacaine 0.25%/EPINEPHrine 1:200,000 10 ML SDV INJECT ONE; -Bupivacaine 25%/EPINEPHrine/PF 30 ML ONE; -EPINEPHrine 1 MG/ML SDV ONE; -Gentamicin 40 MG/ML 2 ML Vial ONE; +Iopamidol 200-M 10 ML vial ITHECAL ONE; +Lidocaine 2% 5 ML SDV ONE; +Ropivacaine 0.5% 5 MG/ML 30 ML SDV ONE; -ceFAZolin 1 GM Vial ONE; -ceFAZolin 2 GM in Premix Bag 1 BAG IV ONE; -traMADol 50 MG Tab PO PRN
--- NOTE | 2019-05-08 21:20 | OR ---
SURGEON: Rossy Botello D.O. DATE OF PROCEDURE: 05/08/2019 PREOPERATIVE DIAGNOSES: 1. Failed back surgery syndrome. 2. Left lumbar facet syndrome, L4, L5, and S1. POSTOPERATIVE DIAGNOSES: 1. Failed back surgery syndrome. 2. Left lumbar facet syndrome, L4, L5, and S1. PRIMARY SURGEON: Rossy Botello D.O. PROCEDURES PERFORMED: 1. Left L4 diagnostic and therapeutic medial branch block. 2. Left L5 diagnostic and therapeutic medial branch block. 3. Left S1 diagnostic and therapeutic medial branch block. 4. Fluoroscopic guidance for needle placement. 5. Local with oral valium for sedation. PREOPERATIVE PAIN: 7/10. POSTOPERATIVE PAIN: 4/10. SCREENING QUESTIONS: The patient answered "No" to all the following questions: 1. Are you allergic to iodine, Betadine or latex? 2. Do you have a bleeding disorder? 3. Are you on anti-inflammatories or blood thinners? 4. Do you have any current local or systemic infections? DESCRIPTION OF PROCEDURE: The patient had the procedure thoroughly explained including risks, benefits and alternatives. Consent was signed in my clinic indicating understanding and willingness to proceed. The patient presented to [facility] [place] and was escorted to the dressing room to disrobe and change into a hospital gown. Preoperative history and screening were performed by my nurse. Vital signs were taken and stable. The patient reported that Valium 10 milligrams was taken prior to the procedure. The patient was brought back to the procedure room and placed in the prone position on the procedure room table. A pillow was placed under the abdomen in order to flatten the lumbar lordosis. The back was prepped with ChloraPrep and sterilely draped. All personnel in the procedure room were dressed in appropriate attire including surgical scrubs, head and shoe covers. This was to ensure sterility while in the treatment room. During the time fluoroscopy was in use all personnel in the operating room wore lead mclaughlin with thyroid collars. Sterile technique was used during the procedure. The fluoroscope was positioned to provide a left oblique view for the left L3 medial branch block. This was begun by anesthetizing the skin and soft tissues. Then a 22-gauge 3.5 inch needle was positioned at the junction of the transverse process and the superior articular process at the left L4 vertebral body. Precise needle placement was confirmed by fluoroscopy with 0.2 cubic centimeters of IsoVue-200 contrast dye injected through microbore tubing under live fluoroscopy showing no intravascular flow pattern and adequate flow over the target medial branch of L3 on the left. After negative aspiration, 0.5 cubic centimeters of celestone and local mixture of PF 2% lidocaine and 0.5% Ropivacaine was injected without complications. The fluoroscope was positioned to provide a left L4 medial branch block. The skin was anesthetized. Then a 22-gauge 3.5 inch spinal needle was positioned at the junction of the transverse process in the superior articular process of the L5 vertebral body on the left. Precise needle placement was confirmed by fluoroscopy and with 0.2 cubic centimeters of IsoVue-200 contrast dye injected through microbore tubing showing no intravascular flow pattern and adequate flow over the target medial branch of L4 on the left. Then 1.0 cc of celestone and local was injected after negative aspiration without complications. Then the fluoroscope was positioned for the left L5 dorsal ramus block. This was begun by anesthetizing the skin and soft tissues. Then with fluoroscopic guidance, a sterile 22-gauge 3.5 inch spinal needle was positioned at the left sacral ala. Precise needle placement was confirmed with 0.2 cubic centimeters of Isovue-200 contrast dye injected through microbore tubing under live fluoroscopy showing no intravascular flow pattern and adequate flow over the target L5 nerve. The procedure was well tolerated and vital signs were stable during and after the procedure. The staff escorted the patient to the recovery area. The patient was given both oral and written discharge and followup instructions. The patient will follow up with a pain diary which will be evaluated over this evening doing things that would normally cause pain. The patient was given both oral and written discharge and followup instructions. The patient voiced understanding including understanding of those signs and symptoms that would require emergency care and knows how to contact the office if there are any questions or concerns in the meantime. HOGNEMO / KARY /[id number] TRAVIS
== END 2019-05-08 14:50 | disposition home or self-care (01) ==
LOC: MW.SDS 12:00
PROVIDERS: ATTEND Anesthesiology
DX: G89.29 Other chronic pain (principal); M54.5 Low back pain; M96.1 Postlaminectomy syndrome, not elsewhere classified; M51.17 Intervertebral disc disorders with radiculopathy, lumbosacral region; M12.88 Other specific arthropathies, not elsewhere classified, other specified site; E53.8 Deficiency of other specified B group vitamins; N32.81 Overactive bladder; E66.9 Obesity, unspecified; Z68.38 Body mass index [BMI] 38.0-38.9, adult; Z98.1 Arthrodesis status; Z88.5 Allergy status to narcotic agent; Z88.8 Allergy status to other drugs, medicaments and biological substances; Z79.899 Other long term (current) drug therapy
CPT/HCPCS: 64450; 64493; 64494; J0702; J2001; J2795; Q9966

== ENCOUNTER 2019-06-24 10:56 | Day surgery (SDC) | payer BC ==
[~2019-06-24 10:56] MED LIST changes: +Betamethasone Acetate/Betamethasone Sod Phosphate 30 MG/5 ML MDV EPIDUR ONE; -Betamethasone Acetate/Betamethasone Sod Phosphate 30 MG/5 ML MDV ONE; +Lidocaine 2% 5 ML SDV INJECT ONE; -Lidocaine 2% 5 ML SDV ONE; +Ropivacaine 0.5% 5 MG/ML 30 ML SDV INJECT ONE; -Ropivacaine 0.5% 5 MG/ML 30 ML SDV ONE
--- NOTE | 2019-06-24 17:57 | OR ---
SURGEON: Rossy Botello D.O. DATE OF PROCEDURE: 06/24/2019 ASSISTANTS: OR Staff Present: 1. Fabian Ramírez RN. 2. Carmen Joy RN. 3. RT Alvaro. WOUND CLASS: I. PREOPERATIVE DIAGNOSES: 1. Lumbar facet arthropathy. 2. Failed back surgery syndrome. 3. Chronic low back pain. POSTOPERATIVE DIAGNOSES: 1. Lumbar facet arthropathy. 2. Failed back surgery syndrome. 3. Chronic low back pain. PROCEDURES PERFORMED: 1. Bilateral L3, L4 and L5 medial branch blocks. 2. Fluoroscopic guidance for needle placement. ANESTHESIA: Local with oral valium for sedation. SCREENING QUESTIONS: The patient answered "No" to all the following questions: 1. Are you allergic to iodine, Betadine or latex? 2. Do you have a bleeding disorder? 3. Are you on anti-inflammatories or blood thinners? 4. Do you have any current local or systemic infections? MEDICAL NECESSITY: This is a patient with chronic low back pain who comes in for the above diagnostic procedure. This procedure is being performed in accordance with national guidelines written by the [employer]; please see medical necessity note in chart. DESCRIPTION OF PROCEDURE: The patient had the procedure thoroughly explained including risks, benefits and alternatives. Consent was signed in my clinic indicating understanding and willingness to proceed. The patient presented to [facility] and was escorted to the dressing room to disrobe and change into a hospital gown. Preoperative history and screening were performed by my nurse. Vital signs were taken and stable. The patient reported that Valium 10 milligrams was taken prior to the procedure. The patient was brought back to the procedure room and placed in the prone position on the procedure room table. A pillow was placed under the abdomen in order to flatten the lumbar lordosis. The back was prepped with ChloraPrep and sterilely draped. All personnel in the procedure room were dressed in appropriate attire including surgical scrubs, head and shoe covers. This was to ensure sterility while in the treatment room. During the time fluoroscopy was in use all personnel in the operating room wore lead mclauglhin with thyroid collars. Sterile technique was used during the procedure. The fluoroscope was positioned to provide a right oblique view. Then the right L3 medial branch block was begun by anesthetizing the skin and soft tissues with 2 cubic centimeters of 2% Preservative-Free Lidocaine with a 25-gauge 1.5 inch needle. There were no signs of infection at the site of needle skin insertions. Using fluoroscopic guidance a sterile 22-gauge 3.5 inch spinal needle was positioned at the junction of the transverse process with the superior articular process of the L4 vertebral body. Precise needle placement was confirmed by fluoroscopy and 0.2 cubic centimeters of IsoVue-200 contrast dye which was injected through microbore tubing under live fluoroscopy and showed no intravascular flow pattern and adequate flow over the target L3 medial branch. Then 1.0 cubic centimeters of celestone and 0.5% Ropivacaine Preservative-Free was injected slowly without complications after negative aspiration. Then the fluoroscope was positioned to provide a right oblique view for the right L4 medial branch. This was begun by anesthetizing the skin and soft tissues. The fluoroscope was positioned and a sterile 22-gauge 3.5 inch needle was placed at the junction of the transverse process in the superior articular process of the L5 vertebral body. Precise needle placement was confirmed by fluoroscopy. Then 0.2 cubic centimeters of IsoVue-200 contrast dye was injected through microbore tubing under live fluoroscopy and showed no intravascular flow pattern and adequate flow over the target medial branch. After negative aspiration, 1.0 cubic centimeters of celestone 0.5% Ropivacaine was injected without complications. The fluoroscope was then positioned to provide a right L5 dorsal ramus block. This was begun by anesthetizing the skin and soft tissues over the right sacral sulcus. Then using fluoroscopic guidance, a sterile 22-gauge 3.5 inch spinal needle was positioned at the right sacral ala. Precise needle placement was confirmed by fluoroscopy in AP and oblique views, and 0.2 cubic centimeters of IsoVue-200 contrast dye was injected through microbore tubing under live fluoroscopy and showed no intravascular flow pattern and adequate flow over the target nerves. After negative aspiration, 1 cubic centimeters celestone and of 0.5% Ropivacaine was injected. No complications were noted. Then attention was turned to the left side. The fluoroscope was positioned to provide a left oblique view for the left L3 medial branch block. This was begun by anesthetizing the skin and soft tissues. Then a 22-gauge 3.5 inch needle was positioned at the junction of the transverse process and the superior articular process at the left L4 vertebral body. Precise needle placement was confirmed by fluoroscopy with 0.2 cubic centimeters of IsoVue-200 contrast dye injected through microbore tubing under live fluoroscopy showing no intravascular flow pattern and adequate flow over the target medial branch of L3 on the left. After negative aspiration, 1.0 cubic centimeters of celestone and 0.5% Ropivacaine was injected without complications. The fluoroscope was positioned then to provide a left L4 medial branch block. The skin was anesthetized. Then a 22-gauge 3.5 inch spinal needle was positioned at the junction of the transverse process in the superior articular process of the L5 vertebral body on the left. Precise needle placement was confirmed by fluoroscopy and with 0.2 cubic centimeters of IsoVue-200 contrast dye injected through microbore tubing showing no intravascular flow pattern and adequate flow over the target medial branch of L4 on the left. Then 1.0 cc of celestone and 0.5% Ropivacaine was injected after negative aspiration without complications. Then the fluoroscope was positioned for the left L5 dorsal ramus block. This was begun by anesthetizing the skin and soft tissues. Then with fluoroscopic guidance a sterile 22-gauge 3.5 inch spinal needle was positioned at the left sacral ala. Precise needle placement was confirmed with 0.2 cubic centimeters of IsoVue-200 contrast dye injected through microbore tubing under live fluoroscopy showing no intravascular flow pattern and adequate flow over the target L5 nerve. Then 1 cc mixture of celestone and ropivicaine was injected. The procedure was well tolerated and vital signs were stable during and after the procedure. The staff escorted the patient to the recovery area. The patient was given both oral and written discharge and followup instructions. The patient will follow up with a pain diary which will be evaluated over this evening doing things that would normally cause pain. We will evaluate the efficacy of the diagnostic lumbar medial branch blocks as the patient will follow up in the clinic the next day. The patient was given both oral and written discharge and followup instructions. The patient voiced understanding including understanding of those signs and symptoms that would require emergency care and knows how to contact the office if there are any questions or concerns in the meantime. PREOPERATIVE PAIN: 03/07. POSTOPERATIVE PAIN: 11/07. FOLLOWUP: In the Pain Clinic in 3 weeks. SILVIO / KARY /[id number] MTDD
== END 2019-06-24 13:15 | disposition home or self-care (01) ==
LOC: MW.SDS 10:56
PROVIDERS: ATTEND Anesthesiology
DX: G89.29 Other chronic pain (principal); M47.26 Other spondylosis with radiculopathy, lumbar region; M51.16 Intervertebral disc disorders with radiculopathy, lumbar region; M47.27 Other spondylosis with radiculopathy, lumbosacral region; E53.8 Deficiency of other specified B group vitamins; M96.1 Postlaminectomy syndrome, not elsewhere classified; E66.9 Obesity, unspecified; Z98.1 Arthrodesis status; Z68.37 Body mass index [BMI] 37.0-37.9, adult; Z88.5 Allergy status to narcotic agent; Z88.8 Allergy status to other drugs, medicaments and biological substances; Z79.899 Other long term (current) drug therapy
CPT/HCPCS: 64450; J0702

== ENCOUNTER 2019-09-18 10:53 | Day surgery (SDC) | payer BC ==
--- NOTE | 2019-09-18 19:07 | OR ---
SURGEON: Rossy Botello D.O. DATE OF PROCEDURE: 09/18/2019 PRIMARY SURGEON: Rossy Botello D.O. ADHESIVE BONDING MACHINE OPERATOR: OR staff present: 1. Uzair Rodriguez RN. 2. Angelina Mayo RN. 3. Patrice Hays RT. WOUND CLASS: I. PREOPERATIVE DIAGNOSES: 1. Failed back surgery syndrome. 2. Lumbar facet syndrome. 3. Chronic low back pain. POSTOPERATIVE DIAGNOSES: 1. Failed back surgery syndrome. 2. Lumbar facet syndrome. 3. Chronic low back pain. PROCEDURES PERFORMED: 1. Bilateral L3-4 facet blocks. 2. Bilateral L4-5 facet blocks. 3. Bilateral L5-S1 facet blocks. 4. Fluoroscopic guidance for needle placement. 5. Local with oral Valium for sedation. SCREENING QUESTIONS: The patient answered "No" to all the following questions: 1. Are you allergic to iodine, Betadine or latex? 2. Do you have a bleeding disorder? 3. Are you on anti-inflammatories or blood thinners? 4. Do you have any current local or systemic infections? MEDICAL NECESSITY: This is a patient with chronic low back pain who comes in for the above diagnostic procedure. This procedure is being performed in accordance with national guidelines written by the [employer]; please see medical necessity note in chart. DESCRIPTION OF PROCEDURE: The patient had the procedure thoroughly explained including risks, benefits and alternatives. Consent was signed in my clinic indicating understanding and willingness to proceed. The patient presented to [facility] and was escorted to the dressing room to disrobe and change into a hospital gown. Preoperative history and screening were performed by my nurse. Vital signs were taken and stable. The patient reported that Valium 10 milligrams was taken prior to the procedure. The patient was brought back to the procedure room and placed in the prone position on the procedure room table. A pillow was placed under the abdomen in order to flatten the lumbar lordosis. The back was prepped with ChloraPrep and sterilely draped. All personnel in the procedure room were dressed in appropriate attire including surgical scrubs, head and shoe covers. This was to ensure sterility while in the treatment room. During the time fluoroscopy was in use all personnel in the operating room wore lead mclaughlin with thyroid collars. Sterile technique was used during the procedure. The fluoroscope was positioned to provide a right oblique view. Then the right L3-4 facet block was begun by anesthetizing the skin and soft tissues with 2 cubic centimeters of 2% Preservative-Free Lidocaine with a 25-gauge 1.5 inch needle. There were no signs of infection at the site of needle skin insertions. Using fluoroscopic guidance a sterile 22-gauge 3.5 inch spinal needle was positioned at the " ear of the abril dog". Precise needle placement was confirmed by fluoroscopy and 0.2 cubic centimeters of IsoVue-200 contrast dye which was injected through microbore tubing under live fluoroscopy and showed no intravascular flow pattern and adequate flow over the target. Then 1.0 cubic centimeters of celestone and0.5% Ropivacaine Preservative-Free was injected slowly without complications after negative aspiration. Then the fluoroscope was positioned to provide a right oblique view for the right L4-5 facet injection. This was begun by anesthetizing the skin and soft tissues. The fluoroscope was positioned and a sterile 22-gauge 3.5 inch needle was placed at the junction of the ear of the mony bowen". Precise needle placement was confirmed by fluoroscopy. Then 0.2 cubic centimeters of IsoVue-200 contrast dye was injected through microbore tubing under live fluoroscopy and showed no intravascular flow pattern and adequate flow over the target. After negative aspiration, 1.0 cubic centimeters of celestone and 0.5% Ropivacaine was injected without complications. The fluoroscope was then positioned to provide a right L5-S1 facet injection. This was begun by anesthetizing the skin and soft tissues over the right sacral sulcus. Then using fluoroscopic guidance, a sterile 22-gauge 3.5 inch spinal needle was positioned at the right sacral ala. Precise needle placement was confirmed by fluoroscopy in AP and oblique views, and 0.2 cubic centimeters of IsoVue-200 contrast dye was injected through microbore tubing under live fluoroscopy and showed no intravascular flow pattern and adequate flow over the target . After negative aspiration, 1.0 cubic centimeters of celestone and 0.5 % Ropivacaine was injected. No complications were noted. Then attention was turned to the left side. The fluoroscope was positioned to provide a left oblique view for the left L3-4 facet injection. This was begun by anesthetizing the skin and soft tissues. Then a 22-gauge 3.5 inch needle was positioned at the junction of the " ear of the mony dog". Precise needle placement was confirmed by fluoroscopy with 0.2 cubic centimeters of IsoVue-200 contrast dye injected through microbore tubing under live fluoroscopy showing no intravascular flow pattern and adequate flow over the target. After negative aspiration, 1.0 cubic centimeters of celestone and 0.5% Ropivacaine was injected without complications. The fluoroscope was positioned then to provide a left L4-5 facet injection. The skin was anesthetized. Then a 22-gauge 3.5 inch spinal needle was positioned at the junction of the "ear of the mony dog. Precise needle placement was confirmed by fluoroscopy and with 0.2 cubic centimeters of IsoVue-200 contrast dye injected through microbore tubing showing no intravascular flow pattern and adequate flow over the target. Then 1.0 cubiccentimeters of celestone and 0.5 % Ropivacaine was injected after negative aspiration without complications. Then the fluoroscope was positioned for the left L5-S1 facet injection. This was begun by anesthetizing the skin and soft tissues. Then with fluoroscopic guidance a sterile 22-gauge 3.5 inch spinal needle was positioned at the left ear of mony dog. Precise needle placement was confirmed with 0.2 cubic centimeters of IsoVue-200 contrast dye injected through microbore tubing under live fluoroscopy showing no intravascular flow pattern and adequate flow over the target L5 nerve.Then celestone and 0.5% ropivicaine was injected. The procedure was well tolerated and vital signs were stable during and after the procedure. The staff escorted the patient to the recovery area. The patient was given both oral and written discharge and followup instructions. The patient will follow up with a pain diary which will be evaluated over this evening doing things that would normally cause pain. We will evaluate the efficacy of the diagnostic lumbar medial branch blocks as the patient will follow up in the clinic the next day. The patient was given both oral and written discharge and followup instructions. The patient voiced understanding including understanding of those signs and symptoms that would require emergency care and knows how to contact the office if there are any questions or concerns in the meantime. PREOPERATIVE PAIN: 6/10. POSTOPERATIVE PAIN: 0/10. FOLLOWUP: In the Pain Clinic in 1 month. SILVIO / LAURAL /[id number] MTDD
== END 2019-09-18 13:23 ==
LOC: MW.SDS 10:53
PROVIDERS: ATTEND Anesthesiology
DX: G89.29 Other chronic pain (principal); M96.1 Postlaminectomy syndrome, not elsewhere classified; M53.86 Other specified dorsopathies, lumbar region
CPT/HCPCS: 64493; 64494; 64495; J0702

== ENCOUNTER 2020-03-11 06:35 | Day surgery (SDC) | payer BC ==
[~2020-03-11 06:35] MED LIST changes: -Betamethasone Acetate/Betamethasone Sod Phosphate 30 MG/5 ML MDV EPIDUR ONE; -Iopamidol 200-M 10 ML vial ITHECAL ONE; +Lactated Ringers 1,000 ML IV SCH; -Lidocaine 2% 5 ML SDV INJECT ONE; -Ropivacaine 0.5% 5 MG/ML 30 ML SDV INJECT ONE; +Sodium Chloride 0.9% 10 ML SDV IV PRN; +Sodium Chloride 0.9% 10 ML Syringe FLUSH PRN; +Sodium Chloride 0.9% 2.5 ML Syringe FLUSH PRN; +ceFAZolin 2 GM in Premix Bag 1 BAG IV ONE
[2020-03-11] MEDS ORDERED: Bupivacaine 0.5% 30 ML SDV ONE (07:04)
[2020-03-11] MEDS ORDERED: Lidocaine 1% 20 ML MDV ONE (07:04)
[2020-03-11] MEDS ORDERED: Midazolam 1 MG/ML 2 ML SDV ONE (07:05)
[2020-03-11] MEDS ORDERED: Propofol 200 MG/20 ML SDV ONE (07:05)
[2020-03-11] MEDS ORDERED: Lidocaine 2% 5 ML SDV ONE (07:05)
[2020-03-11] MEDS ORDERED: Ondansetron 4 MG/2 ML SDV ONE (07:05)
[2020-03-11] MEDS ORDERED: fentaNYL 250 MCG/5 ML SDV ONE (07:05)
--- NOTE | 2020-03-11 07:29 | PCM.PREANE ---
Preanesthetic Assessment - Anesthesia/Transfusion/Family Hx Anesthesia History: Prior Anesthesia Reaction Other Type of Anesthesia Reaction Comment: hx: Motion sickness, sick post, No known family hx: problems Family History of Anesthesia Reaction: No Transfusion History: No Prior Transfusion(s) Intubation History: Unknown - Review of Systems General: No Symptoms Pulmonary: No Symptoms Cardiovascular: No Symptoms Gastrointestinal: No Symptoms Neurological: No Symptoms Other: Reports: None - Physical Assessment Vital Signs: Last Vital Signs Temp 36.2 C 03/11/20 07:19 Pulse 59 L 03/11/20 07:19 Resp 16 03/11/20 07:19 BP 132/70 03/11/20 07:19 Pulse Ox 97 03/11/20 07:19 Height: 5 ft 7 in Weight: 107.501 kg ASA Class: 2 Mental Status: Alert & Oriented x3 Airway Class: Mallampati = 2 Dentition: Reports: Normal Dentition (invisiline upper and lower) Thyro-Mental Finger Breadths: 3 Mouth Opening Finger Breadths: 3 ROM/Head Extension: Full Lungs: Clear to Auscultation, Normal Respiratory Effort Cardiovascular: Regular Rate, Regular Rhythm - Allergies Allergies/Adverse Reactions: Allergies Allergy/AdvReac Type Severity Reaction Status Date / Time codeine Allergy Tachycardia Verified 03/11/20 07:13 metformin Allergy Diarrhea Verified 03/11/20 07:13 - Blood Blood Available: No - Anesthesia Plan Pre-Op Medication Ordered: None - Acknowledgements Anesthesia Type Planned: General Anesthesia Pt an Appropriate Candidate for the Planned Anesthesia: Yes Alternatives and Risks of Anesthesia Discussed w Pt/Guardian: Yes Pt/Guardian Understands and Agrees with Anesthesia Plan: Yes PreAnesthesia Questionnaire HEENT History: Reports: None Cardiovascular History: Reports: None, Other (See Below) Other Cardiovascular History: states takes spirolactone for fluid retention not HTN Respiratory History: Reports: None Gastrointestinal History: Reports: None Genitourinary History: Reports: None [employer] History: Reports: Musculoskeletal History: Reports: Back Pain, Chronic, Fracture Other Musculoskeletal History: hx of fx foot Neurological History: Reports: Other (See Below) Other Neuro History: hx of motion sickness Psychiatric History: Reports: None Endocrine/Metabolic History: Reports: Obesity/BMI 30+ (BMI 37.1), Other (See Below) Other Endocrine/Metabolic History: "prediabetic" Hematologic History: Reports: B12 Deficiency Immunologic History: Reports: None Oncologic (Cancer) History: Reports: None Dermatologic History: Reports: Other (See Below) Other Dermatologic History: hyperpigmentation - Past Surgical History Head Surgeries/Procedures: Reports: None HEENT Surgical History: Reports: JULIANNAIK Cardiovascular Surgical History: Reports: None Respiratory Surgical History: Reports: None GI Surgical History: Reports: Appendectomy, Bariatric Procedure, Cholecystectomy , Hernia, Inguinal Other GI Surgeries/Procedures: Inguinal Hernia Repair, abdominoplasty, gastric bypass Female Surgical History: Reports: Breast Implant, Hysterectomy, Salpingo- Oophorectomy Other Female Surgeries/Procedures: hysterectomy with vanessa S&O Endocrine Surgical History: Reports: None Neurological Surgical History: Reports: Lumbar Spine, Spinal Fusion Other Neurological Surgeries/Procedures: back surgery x2 Musculoskeletal Surgical History: Reports: Other (See Below) Other Musculoskeletal Surgeries/Procedures:: Low back surgery with hardware ' plate and screws' Oncologic Surgical History: Reports: None Dermatological Surgical History: Reports: Plastic Surgical Reconstruction/Repair - SUBSTANCE USE Smoking Status *Q: Never Smoker - HOME MEDS Home Medications: Home Meds Cyanocobalamin (Vitamin B12) [Vitamin B12] 1 injection IM ASDIRECTED 09/06/15 [ History] Spironolactone 50 mg PO DAILY 03/30/17 [History] Estrogens, Conjugated [Premarin] 0.625 mg PO DAILY 01/04/18 [History] Dulaglutide [Trulicity] 0.75 mg SUBCUT WEEKLY 03/08/20 [History] Gabapentin [Neurontin] 300 mg PO BEDTIME 03/08/20 [History] Nyquil 1 dose PO ASDIRECTED PRN 03/08/20 [History] diazePAM [Valium] 1 - 2 tab PO ASDIRECTED PRN 03/08/20 [History] - CURRENT (IN HOUSE) MEDS Current Meds: Current Medications Lactated Ringer's (Ringers, Lactated) 1,000 mls @ 125 mls/hr IV ASDIRECTED SHASTA Last Admin: 03/11/20 07:16 Dose: 125 mls/hr Sodium Chloride (Saline Flush) 10 ml FLUSH ASDIRECTED PRN PRN Reason: Keep Vein Open Sodium Chloride (Saline Flush) 2.5 ml FLUSH ASDIRECTED PRN PRN Reason: Keep Vein Open Sodium Chloride (Normal Saline) 10 ml IV ASDIRECTED PRN PRN Reason: IV Use Discontinued Medications Bupivacaine HCl (Marcaine 0.5%) Confirm Administered Dose 30 ml .ROUTE .STK-MED ONE Stop: 03/11/20 07:05 Fentanyl (Sublimaze) Confirm Administered Dose 250 mcg .ROUTE .STK-MED ONE Stop: 03/11/20 07:06 Cefazolin Sodium/Dextrose 2 gm (/ Premix) 50 mls @ 100 mls/hr IV ONETIME ONE Stop: 03/08/20 10:20 Lidocaine (Xylocaine-Mpf 2%) Confirm Administered Dose 5 ml .ROUTE .STK-MED ONE Stop: 03/11/20 07:06 Lidocaine HCl (Xylocaine 1%) Confirm Administered Dose 20 ml .ROUTE .STK-MED ONE Stop: 03/11/20 07:05 Midazolam HCl (Versed 1 Mg/Ml) Confirm Administered Dose 2 mg .ROUTE .STK-MED ONE Stop: 03/11/20 07:06 Ondansetron HCl (Zofran) Confirm Administered Dose 4 mg .ROUTE .STK-MED ONE Stop: 03/11/20 07:06 Propofol (Diprivan 20 Ml) Confirm Administered Dose 200 mg .ROUTE .STK-MED ONE Stop: 03/11/20 07:06
[2020-03-11] MEDS ORDERED: Glycopyrrolate 0.2 MG/ML SDV ONE (07:59)
[2020-03-11] MEDS ORDERED: Sodium Chloride 0.9% 20 ML ONE (07:59)
[2020-03-11] MEDS ORDERED: ceFAZolin 1 GM Vial ONE (07:59)
--- NOTE | 2020-03-11 08:59 | PCM.POSTAN ---
POST ANESTHESIA ASSESSMENT - MENTAL STATUS Mental Status: Alert, Oriented - VITAL SIGNS Vital Signs: Last Vital Signs Temp 36.2 C 03/11/20 08:22 Pulse 87 03/11/20 08:47 Resp 15 03/11/20 08:47 BP 114/74 03/11/20 08:47 Pulse Ox 94 L 03/11/20 08:47 - RESPIRATORY Respiratory Status: Respiratory Rate WNL, Airway Patent, O2 Saturation Stable - CARDIOVASCULAR CV Status: Pulse Rate WNL, Blood Pressure Stable - GASTROINTESTINAL GI Status: No Symptoms - PAIN Pain Score: 0 - POST OP HYDRATION Hydration Status: Adequate & Stable - OBSERVATIONS Free Text/Narrative:: No anesthesia problems
--- NOTE | 2020-03-11 09:25 | PCM.OPNOTE ---
- General Post-Op/Procedure Note Date of Surgery/Procedure: 03/11/20 Operative Procedure(s): Left breast excisional biopsy Findings: 1.2 cm in diameter sebaceous cyst Pre Op Diagnosis: Left breast mass Post-Op Diagnosis: Sebaceous cyst Anesthesia Technique: General LMA Primary Surgeon: Liseth Abreu Fluid Replacement, Intraop: 900 EBL in mLs: 5 Condition: Good Free Text/Narrative:: Intake & Output 03/10/20 03/11/20 03/11/20 22:59 06:59 14:59 Intake Total 950 Balance 950
--- NOTE | 2020-03-11 09:32 | PCM48HPAN ---
Post Anesthesia Note - EVALUATION WITHIN 48HRS OF ANESTHETIC Vital Signs in Normal Range: Yes Patient Participated in Evaluation: Yes Respiratory Function Stable: Yes Airway Patent: Yes Cardiovascular Function Stable: Yes Hydration Status Stable: Yes Pain Control Satisfactory: Yes Nausea and Vomiting Control Satisfactory: Yes Mental Status Recovered: Yes Vital Signs: Last Vital Signs Temp 36.2 C 03/11/20 08:22 Pulse 87 03/11/20 08:47 Resp 15 03/11/20 08:47 BP 114/74 03/11/20 08:47 Pulse Ox 94 L 03/11/20 08:47 - COMMENTS/OBSERVATIONS Free Text/Narrative:: No anesthesia problems
[2020-03-11 12:58] VITALS: BP 120/70; PULSE 73
--- NOTE | 2020-03-11 17:48 | OR ---
SURGEON: LISETH ABREU MD DATE OF PROCEDURE: 03/11/2020 PREOPERATIVE DIAGNOSIS: Left breast mass. POSTOPERATIVE DIAGNOSIS: Left breast sebaceous cyst. PROCEDURE PERFORMED: Excisional biopsy of left breast mass. PRIMARY SURGEON: Liseth Abreu MD ANESTHESIA: General LMA. FLUIDS: 900 mL of crystalloid. ESTIMATED BLOOD LOSS: 5 mL. FINDINGS: 1.2 cm in diameter sebaceous cyst. COMPLICATIONS: None. INDICATIONS: The patient is a 54-year-old female who has had a left breast mass that has been slowly growing in size with time. An MRI was performed of the bilateral breasts which showed a questionable sebaceous cyst. The decision was made to proceed to the operating room for an excisional biopsy of this mass. I explained the procedure, expected perioperative course, and the risks. The patient verbalized understanding and wishes to proceed. PROCEDURE IN DETAIL: The patient was brought into the OR and placed on the OR table in supine position. A time-out was completed verifying the patient's name, age, date of , allergies, and procedure to be performed. General LMA anesthesia was induced. The left breast was prepped and draped in usual standard fashion. I palpated the left breast mass which was at the 6 o'clock position along the patient's previous reduction mammoplasty scar. The area around it was anesthetized with 0.5% Marcaine plain. A vertical incision was made along her previous scar. Cautery was used to dissect down to the level of the subcutaneous fat. As soon as I reached this level, I encountered a cystic structure. I dissected this cyst from the surrounding tissue using electrocautery and Metzenbaum scissors. I entered the cyst wall and a proteinaceous fluid was expressed consistent with the findings of a sebaceous cyst. This was dissected free of all the surrounding tissues and placed on the back table. It was measured, it measured 1.2 cm in diameter. It was sent to pathology labeled as left breast sebaceous cyst. I irrigated my operative field and inspected it. Cautery was used to achieve hemostasis. The wound was then closed with interrupted layers of 3-0 Vicryl suture within the breast tissue and subcutaneous fat. The skin was closed with running 4-0 Monocryl stitch. Steri- Strips and sterile dressings were applied. The patient tolerated the procedure well and was transferred to the PACU in stable condition. All counts were complete and correct at the end of the case. YOLETTE / KARY /[id number]
== END 2020-03-11 09:50 | disposition home or self-care (01) ==
LOC: MW.SDS 06:35
PROVIDERS: ATTEND Surgery
DX: N60.82 Other benign mammary dysplasias of left breast (principal); E66.9 Obesity, unspecified; G89.4 Chronic pain syndrome; M96.1 Postlaminectomy syndrome, not elsewhere classified; Z88.8 Allergy status to other drugs, medicaments and biological substances; Z88.5 Allergy status to narcotic agent; Z79.899 Other long term (current) drug therapy; Z98.890 Other specified postprocedural states; Z68.34 Body mass index [BMI] 34.0-34.9, adult
CPT/HCPCS: 19120; J0690; J2001; J2250; J2405; J2704; J3010; J3490; J7120; 00400; 88305

== ENCOUNTER 2020-04-15 10:57 | Day surgery (SDC) | payer BC, OTHER ==
[2020-04-15] MEDS ORDERED: Lidocaine 2% 5 ML SDV INJECT ONE (12:00)
[2020-04-15] MEDS ORDERED: Iopamidol 200-M 10 ML vial ITHECAL ONE (12:00)
[2020-04-15] MEDS ORDERED: Betamethasone Acetate/Betamethasone Sod Phosphate 30 MG/5 ML MDV EPIDUR ONE (12:00)
[2020-04-15] MEDS ORDERED: Ropivacaine 0.5% 5 MG/ML 30 ML SDV INJECT ONE (12:00)
--- NOTE | 2020-05-03 17:45 | OR ---
SURGEON: Rossy Botello D.O. DATE OF PROCEDURE: 04/15/2020 OR STAFF PRESENT: 1. Patrice Hays, RT. 2. Palmira Kwong, RT. 3. Uzair Peter RN. 4. Angelina Mayo RN. WOUND CLASS: I. PREOPERATIVE DIAGNOSES: 1. Lumbar facet syndrome. 2. Failed back surgery syndrome. 3. Chronic low back pain. POSTOPERATIVE DIAGNOSES: 1. Lumbar facet syndrome. 2. Failed back surgery syndrome. 3. Chronic low back pain. PROCEDURES PERFORMED: 1. Right L3 medial branch block. 2. Right L4 medial branch block. 3. Right L5 medial branch block. 4. Left L3 medial branch block. 5. Left L4 medial branch block. 6. Left L5 medial branch block. 7. Fluoroscopic guidance for needle placement. 8. Local with oral Valium for sedation. SCREENING QUESTIONS: The patient answered "No" to all the following questions: 1. Are you allergic to iodine, Betadine or latex? 2. Do you have a bleeding disorder? 3. Are you on anti-inflammatories or blood thinners? 4. Do you have any current local or systemic infections? MEDICAL NECESSITY: This is a patient with chronic low back pain who comes in for the above diagnostic procedure. This procedure is being performed in accordance with national guidelines written by the [employer]; please see medical necessity note in chart. DESCRIPTION OF PROCEDURE: The patient had the procedure thoroughly explained including risks, benefits and alternatives. Consent was signed in my clinic indicating understanding and willingness to proceed. The patient presented to [facility] and was escorted to the dressing room to disrobe and change into a hospital gown. Preoperative history and screening were performed by my nurse. Vital signs were taken and stable. The patient reported that Valium 10 milligrams was taken prior to the procedure. The patient was brought back to the procedure room and placed in the prone position on the procedure room table. A pillow was placed under the abdomen in order to flatten the lumbar lordosis. The back was prepped with ChloraPrep and sterilely draped. All personnel in the procedure room were dressed in appropriate attire including surgical scrubs, head and shoe covers. This was to ensure sterility while in the treatment room. During the time fluoroscopy was in use all personnel in the operating room wore lead mclaughlin with thyroid collars. Sterile technique was used during the procedure. The fluoroscope was positioned to provide a right oblique view. Then the right L3 medial branch block was begun by anesthetizing the skin and soft tissues with 2 cubic centimeters of 2% Preservative-Free Lidocaine with a 25-gauge 1.5 inch needle. There were no signs of infection at the site of needle skin insertions. Using fluoroscopic guidance a sterile 22-gauge 3.5 inch spinal needle was positioned at the junction of the transverse process with the superior articular process of the L4 vertebral body. Precise needle placement was confirmed by fluoroscopy and 0.2 cubic centimeters of IsoVue-200 contrast dye which was injected through microbore tubing under live fluoroscopy and showed no intravascular flow pattern and adequate flow over the target L3 medial branch. Then 0.5 cubic centimeters of 0.5% Ropivacaine Preservative-Free was injected slowly without complications after negative aspiration. Then the fluoroscope was positioned to provide a right oblique view for the right L4 medial branch. This was begun by anesthetizing the skin and soft tissues. The fluoroscope was positioned and a sterile 22-gauge 3.5 inch needle was placed at the junction of the transverse process in the superior articular process of the L5 vertebral body. Precise needle placement was confirmed by fluoroscopy. Then 0.2 cubic centimeters of IsoVue-200 contrast dye was injected through microbore tubing under live fluoroscopy and showed no intravascular flow pattern and adequate flow over the target medial branch. After negative aspiration, 0.5 cubic centimeters of 0.5% Ropivacaine was injected without complications. The fluoroscope was then positioned to provide a right L5 dorsal ramus block. This was begun by anesthetizing the skin and soft tissues over the right sacral sulcus. Then using fluoroscopic guidance, a sterile 22-gauge 3.5 inch spinal needle was positioned at the right sacral ala. Precise needle placement was confirmed by fluoroscopy in AP and oblique views, and 0.2 cubic centimeters of IsoVue-200 contrast dye was injected through microbore tubing under live fluoroscopy and showed no intravascular flow pattern and adequate flow over the target nerves. After negative aspiration, 0.5 cubic centimeters of 0.5% Ropivacaine was injected. No complications were noted. Then attention was turned to the left side. The fluoroscope was positioned to provide a left oblique view for the left L3 medial branch block. This was begun by anesthetizing the skin and soft tissues. Then a 22-gauge 3.5 inch needle was positioned at the junction of the transverse process and the superior articular process at the left L4 vertebral body. Precise needle placement was confirmed by fluoroscopy with 0.2 cubic centimeters of IsoVue-200 contrast dye injected through microbore tubing under live fluoroscopy showing no intravascular flow pattern and adequate flow over the target medial branch of L3 on the left. After negative aspiration, 0.5 cubic centimeters of 0.5% Ropivacaine was injected without complications. The fluoroscope was positioned then to provide a left L4 medial branch block. The skin was anesthetized. Then a 22-gauge 3.5 inch spinal needle was positioned at the junction of the transverse process in the superior articular process of the L5 vertebral body on the left. Precise needle placement was confirmed by fluoroscopy and with 0.2 cubic centimeters of IsoVue-200 contrast dye injected through microbore tubing showing no intravascular flow pattern and adequate flow over the target medial branch of L4 on the left. Then 0.5 cubic centimeters of 0.5% Ropivacaine was injected after negative aspiration without complications. Then the fluoroscope was positioned for the left L5 dorsal ramus block. This was begun by anesthetizing the skin and soft tissues. Then with fluoroscopic guidance a sterile 22-gauge 3.5 inch spinal needle was positioned at the left sacral ala. Precise needle placement was confirmed with 0.2 cubic centimeters of IsoVue-200 contrast dye injected through microbore tubing under live fluoroscopy showing no intravascular flow pattern and adequate flow over the target L5 nerve. The procedure was well tolerated and vital signs were stable during and after the procedure. The staff escorted the patient to the recovery area. The patient was given both oral and written discharge and followup instructions. The patient will follow up with a pain diary which will be evaluated over this evening doing things that would normally cause pain. We will evaluate the efficacy of the diagnostic lumbar medial branch blocks as the patient will follow up in the clinic the next day. The patient was given both oral and written discharge and followup instructions. The patient voiced understanding including understanding of those signs and symptoms that would require emergency care and knows how to contact the office if there are any questions or concerns in the meantime. PREOPERATIVE PAIN: 10. POSTOPERATIVE PAIN: 12/08. FOLLOWUP: In the Pain Clinic in one month. HOGLCHR / MODL /[id number]
== END 2020-04-15 13:40 | disposition home or self-care (01) ==
LOC: MW.SDS 10:57
PROVIDERS: ATTEND Anesthesiology
DX: G89.29 Other chronic pain (principal); M47.27 Other spondylosis with radiculopathy, lumbosacral region; M96.1 Postlaminectomy syndrome, not elsewhere classified; M53.3 Sacrococcygeal disorders, not elsewhere classified; M51.16 Intervertebral disc disorders with radiculopathy, lumbar region; M51.17 Intervertebral disc disorders with radiculopathy, lumbosacral region; E66.9 Obesity, unspecified; Z98.1 Arthrodesis status; Z88.5 Allergy status to narcotic agent; Z88.8 Allergy status to other drugs, medicaments and biological substances; Z79.899 Other long term (current) drug therapy; Z68.33 Body mass index [BMI] 33.0-33.9, adult
CPT/HCPCS: 64490-50; 64493; 64494; 64495